=== PATIENT | female | born 1940 | race Caucasian/White ===

== ENCOUNTER 2016-07-26 09:49 | Emergency (ER) | payer OTHER ==
[~2016-07-26] VITALS: Ht 165.1 cm; Wt 65.0 kg
[~2016-07-26 09:49] MED LIST changes: -LISINOPRIL10 MG PO
[2016-07-26 12:35] LABS: CHLORIDE 109 mEq/L (99-109); POTASSIUM 3.6 mEq/L (3.7-5.4); SODIUM 144 mEq/L (136-147)
[2016-07-26 12:37] LABS: GLUCOSE 78 mg/dL (70-99)
[2016-07-26 12:38] LABS: ANION GAP 12 MEQ/L (2-14)
[2016-07-26 12:41] LABS: GFR ESTIMATE (CALCULATED) > 59 mL/min/; UREA NITROGEN (BUN) 13 mg/dL (9-23)
[2016-07-26] MEDS ORDERED: LISINOPRIL10 MG PO (13:27)
[2016-07-26 14:21] VITALS: BP 183/95
== END 2016-07-26 14:22 | disposition home or self-care (01) ==
LOC: EME 09:49
PROVIDERS: Emergency Medicine
DX: I10 Essential (primary) hypertension (principal); Z79.52 Long term (current) use of systemic steroids
CPT/HCPCS: 80048; 93005; 99281; 99284

== ENCOUNTER → 2016-07-26 | Outpatient (CLI) | payer OTHER ==
[~2016-07-26] VITALS: Ht 175.3 cm; Wt 66.7 kg
[~2016-07-26] MED LIST: ADVIL200 MG PO; DELTASONE20 M1 PO; LISINOPRIL10 MG PO; MULTIPLE VITAM1 EACH PO; PRAVACHOL10 MG PO
[2016-07-26 09:49] LABS: HEMATOCRIT 41.3 % (36.0-46.0); MCH 28.7 PG (29.0-34.0); MCHC 31.7 G/DL (30.0-36.0); MCV 90.6 FL (83-99); MEAN PLAT.VOLUME 10.1 uM^3 (9.5-12.4); PLATELET COUNT 340 K/uL (156-360); RBC DIS.WIDTH-CV 13.5 % (11.8-14.6); RBC DIS.WIDTH-SD 44.1 % (39-53); RED BLOOD COUNT 4.56 M/uL (3.80-5.20)
== END | disposition home or self-care (01) ==
LOC: AMB 08:54
PROVIDERS: Internal Medicine Pulmonary Disease
PROC: 0BJK4ZZ Inspection of Right Lung, Percutaneous Endoscopic Approach (ICD-10-PCS; principal; 2016-07-26)
DX: J18.9 Pneumonia, unspecified organism (principal); Z53.9 Procedure and treatment not carried out, unspecified reason
CPT/HCPCS: 85027; 99213

== ENCOUNTER → 2016-08-05 | Outpatient (CLI) | payer OTHER ==
[~2016-08-05] VITALS: Ht 175.3 cm; Wt 66.7 kg
[~2016-08-05] MED LIST changes: +LISINOPRIL10 MG PO
== END | disposition home or self-care (01) ==
LOC: AMB 11:07
PROC: 0B998ZX Drainage of Lingula Bronchus, Via Natural or Artificial Opening Endoscopic, Diagnostic (ICD-10-PCS; principal; 2016-08-05)
DX: J16.8 Pneumonia due to other specified infectious organisms (principal); B95.61 Methicillin susceptible Staphylococcus aureus infection as the cause of diseases classified elsewhere; M06.9 Rheumatoid arthritis, unspecified; R49.0 Dysphonia; Z79.899 Other long term (current) drug therapy; Z82.49 Family history of ischemic heart disease and other diseases of the circulatory system; Z83.3 Family history of diabetes mellitus; Z80.9 Family history of malignant neoplasm, unspecified
CPT/HCPCS: 87070; 87077; 87081; 87102; 87116; 87147; 87205; 87206; 87278; 88108; J2250; J2310; J3010

== ENCOUNTER 2016-10-03 15:26 | Observation (INO) | payer OTHER ==
[~2016-10-03] VITALS: Ht 176.5 cm; Wt 70.1 kg
[2016-10-03 16:46] LABS: HEMATOCRIT 43.4 % (36.0-46.0); MCH 29.5 PG (29.0-34.0); MCHC 31.8 G/DL (30.0-36.0); MCV 92.7 FL (83-99); MEAN PLAT.VOLUME 9.7 uM^3 (9.5-12.4); PLATELET COUNT 273 K/uL (156-360); RBC DIS.WIDTH-CV 14.8 % (11.8-14.6); RBC DIS.WIDTH-SD 50.6 % (39-53); RED BLOOD COUNT 4.68 M/uL (3.80-5.20); WHITE BLOOD COUNT 15.5 K/uL (4.1-10.2)
[2016-10-03 16:56] LABS: CHLORIDE 100 mEq/L (99-109); POTASSIUM 4.2 mEq/L (3.7-5.4); SODIUM 136 mEq/L (136-147)
[2016-10-03 16:58] LABS: GLUCOSE 97 mg/dL (70-99)
[2016-10-03 16:59] LABS: ANION GAP 11 MEQ/L (2-14)
[2016-10-03 17:01] LABS: GFR ESTIMATE (CALCULATED) 42 mL/min/
[2016-10-03 17:02] LABS: UREA NITROGEN (BUN) 25 mg/dL (9-23)
[2016-10-03 17:06] LABS: TROP-I INTERPRETATION NEGATIVE; TROPONIN-I < 0.01 ng/mL (0.0-0.30)
[2016-10-03] MEDS ORDERED: LISINOPRIL10 MG PO (20:04)
[2016-10-03] MEDS ORDERED: ECHINACEA 5001 EACH PO (20:05)
[2016-10-03] MEDS ORDERED: LEFLUNOMIDE20 MG PO (20:05)
[2016-10-03] MEDS ORDERED: TUMS500 MG PO (20:05)
[2016-10-03] MEDS ORDERED: FOLIC ACID0.4 MG PO (20:05)
[2016-10-03] MEDS ORDERED: REMICADE10 MG/ML IV (20:06)
[2016-10-03] MEDS ORDERED: OCUVITE EYE +1 EACH PO (20:06)
[2016-10-03] MEDS ORDERED: FISH OIL300 MG PO (20:06)
[2016-10-03] MEDS ORDERED: VITAMIN D31000 UNI2 PO (20:07)
[2016-10-03] MEDS ORDERED: ACIDOPHILUS1 EAC4 PO (20:07)
[2016-10-03] MEDS ORDERED: ASCORBIC ACID500 M3 PO (20:07)
[2016-10-03] MEDS ORDERED: LACTAID ULT9000 UNIT PO (20:08)
[2016-10-03] MEDS ORDERED: CINNAMON500 MG PO (20:08)
[2016-10-03] MEDS ORDERED: PRILOSEC OTC20 MG PO (20:08)
[2016-10-03] MEDS ORDERED: LO-DOSE ASPIRIN81 M2 PO (20:08)
[2016-10-03] MEDS ORDERED: PRAVACHOL20 MG PO (20:09)
[2016-10-03 20:51] LABS: ADD MIUA? YES; BILIRUBIN NEGATIVE; BLOOD NEGATIVE; COLOR YELLOW ((YELLOW)); GLUCOSE (STRIP) NEGATIVE; KETONES NEGATIVE; LEUKOCYTES MODERATE; NITRITE NEGATIVE; PROTEIN (STRIP) NEGATIVE; SPECIFIC GRAVITY 1.009 (1.000-1.030); UROBILINOGEN 0.2 MG/DL (0.2-1.0)
[2016-10-03 21:01] LABS: BACTERIA RARE /HPF; EPITHELIAL CELLS 1+ /HPF; MUCUS TRACE /LPF; RED BLOOD CELLS 0-5 /HPF (0-5); UCUL ADDED? NO
[2016-10-03 22:14] VITALS: BP 140/65
[2016-10-04 03:31] VITALS: BP 144/64
[2016-10-04 03:55] VITALS: BP 134/77
[2016-10-04 05:31] LABS: BASOPHIL COUNT 0.1 K/uL (0-0.1); EOSINOPHIL (%) 1.9 % (0-5); EOSINOPHIL COUNT 0.2 K/uL (0-0.3); HEMATOCRIT 37.3 % (36.0-46.0); IMMATURE GRANULOCYTE (%) 0.7 % (0.0-0.7); IMMATURE GRANULOCYTE COUNT 0.1 K/uL; INSTRUMENT ABS NEUTROPHIL CT 6.3 K/uL; LYMPHOCYTE COUNT 4.1 K/uL (1.0-2.8); MCH 29.9 PG (29.0-34.0); MCHC 32.2 G/DL (30.0-36.0); MONOCYTE (%) 11.1 % (3-12); MONOCYTE COUNT 1.4 K/uL (0-0.8); NEUTROPHIL (%) 52.2 % (45-76); NEUTROPHIL COUNT 6.3 K/uL (1.8-6.4); PLATELET COUNT 228 K/uL (156-360); RBC DIS.WIDTH-CV 14.7 % (11.8-14.6); RBC DIS.WIDTH-SD 50.2 % (39-53); RED BLOOD COUNT 4.01 M/uL (3.80-5.20); WHITE BLOOD COUNT 12.2 K/uL (4.1-10.2)
[2016-10-04 05:56] LABS: ANION GAP 6 MEQ/L (2-14); CHLORIDE 107 MEQ/L (99-109); GFR ESTIMATE (CALCULATED) 57 mL/min/; GLUCOSE 85 mg/dL (70-99); POTASSIUM 4.2 MEQ/L (3.7-5.4); SAMPLE HEMOLYSIS CHECK 0; SAMPLE ICTERIC CHECK 0; SAMPLE LIPEMIA CHECK 0; SODIUM 139 MEQ/L (136-147); UREA NITROGEN (BUN) 17 mg/dL (9-23)
[2016-10-04 12:22] VITALS: BP 148/81
== END 2016-10-04 14:32 | disposition home or self-care (01) ==
LOC: EME → EDBD 15:26 → EME 15:26 → EDOF 19:49 → 5WEST 19:49
PROVIDERS: Emergency Medicine; Physician Assistant Medical
DX: R55 Syncope and collapse (principal); N17.9 Acute kidney failure, unspecified; R11.2 Nausea with vomiting, unspecified; R19.7 Diarrhea, unspecified; M06.9 Rheumatoid arthritis, unspecified; I10 Essential (primary) hypertension; E78.5 Hyperlipidemia, unspecified; K21.9 Gastro-esophageal reflux disease without esophagitis
CPT/HCPCS: 70450; 71010; 74176; 80048; 81003; 83735; 84484; 85025; 85027; 87493; 93005; 99281; 99285; G0378; J1644; J7030

== ENCOUNTER 2018-01-14 03:27 | Emergency (ER) | payer OTHER ==
[~2018-01-14] VITALS: Ht 175.3 cm; Wt 69.3 kg
[~2018-01-14 03:27] MED LIST changes: +ACIDOPHILUS1 EAC4 PO; +ASCORBIC ACID500 M3 PO; +CINNAMON500 MG PO; +ECHINACEA 5001 EACH PO; +FISH OIL300 MG PO; +FOLIC ACID0.4 MG PO; +LACTAID ULT9000 UNIT PO; +LEFLUNOMIDE20 MG PO; +LO-DOSE ASPIRIN81 M2 PO; +OCUVITE EYE +1 EACH PO; +PRAVACHOL20 MG PO; +PRILOSEC OTC20 MG PO; +REMICADE10 MG/ML IV; +TUMS500 MG PO; +VITAMIN D31000 UNI2 PO
[2018-01-14 05:02] LABS: CHLORIDE 102 mEq/L (99-109); POTASSIUM 5.1 mEq/L (3.7-5.4); SODIUM 137 mEq/L (136-147)
[2018-01-14 05:05] LABS: GLUCOSE 97 mg/dL (70-99); TOTAL PROTEIN 6.6 g/dL (6.4-8.3)
[2018-01-14 05:07] LABS: TOTAL BILIRUBIN 0.5 mg/dL (0.0-1.0)
[2018-01-14 05:08] LABS: ALKALINE PHOSPHATASE 73 IU/L (3-129); CREATININE 0.9 mg/dL (0.6-1.3); GFR ESTIMATE (CALCULATED) > 59 mL/min/
[2018-01-14 05:09] LABS: UREA NITROGEN (BUN) 15 mg/dL (9-23)
[2018-01-14 05:10] LABS: AST (GOT) 20 IU/L (2-34); HEMATOCRIT 36.1 % (36.0-46.0); HEMOGLOBIN 11.9 G/DL (11.9-15.5); MCH 30.4 PG (29.0-34.0); MCV 92.1 FL (83-99); PLATELET COUNT 195 K/uL (156-360); RBC DIS.WIDTH-CV 13.2 % (11.8-14.6); RBC DIS.WIDTH-SD 44.6 % (39-53); RED BLOOD COUNT 3.92 M/uL (3.80-5.20); WHITE BLOOD COUNT 8.7 K/uL (4.1-10.2)
[2018-01-14 05:11] LABS: ALT (GPT) 16 IU/L (3-49)
[2018-01-14 05:17] LABS: TROP-I INTERPRETATION NEGATIVE; TROPONIN-I < 0.01 ng/mL (0.0-0.30)
[2018-01-14] MEDS ORDERED: XANAX0.25 MG PO (06:51)
[2018-01-14 07:27] VITALS: BP 104/53
== END 2018-01-14 07:33 | disposition home or self-care (01) ==
LOC: EME 03:27
PROVIDERS: Emergency Medicine
DX: I10 Essential (primary) hypertension (principal); F43.21 Adjustment disorder with depressed mood
CPT/HCPCS: 71046; 80053; 84484; 85027; 93005; 99281; 99284